=== PATIENT | male | born 1995 | race Caucasian/White ===

== ENCOUNTER 2025-04-26 21:28 | Emergency (ER) | payer OTHER, SELFPAY ==
[2025-04-26 21:29] VITALS: BP 159/95
--- NOTE | 2025-04-26 22:02 | ED.SKININJ ---
HPI-Injury
General
Chief Complaint: Bite
Time Seen by Provider: 04/26/25 21:47
History of Present Illness-Injury
Initial Injury comments:
29-year-old otherwise healthy male presents to the emergency department for evaluation of a minor laceration to the right cheek that occurred after being bitten by family ember's dog. Dog is reportedly up-to-date on rabies vaccinations. Patient
reports his last tetanus was less than 5 years ago.
Review of Systems
Review of Systems
Allergies reviewed?: Yes
All Other Systems: ROS reviewed and negative except as documented in HPI and ROS
Phy Exam
Physical Exam
Physical Exam:
GEN: Well appearing, NAD, WDWN
HEENT: Oral mucosa moist, no scleral icterus, subcentimeter superficial laceration to the right mandible with no active bleeding
Cardiac: Regular rate
Lung: No respiratory distress, no tachypnea
MSK: No gross deformity or injuries
Skin: Good color, no pallor or jaundice, no rashes
Neuro: AO x3, moves all extremities freely
Psych: Calm, cooperative
Course
Vital Signs
Initial and Last Documented VS:
Initial Vital Signs
Temp Pulse Resp BP Pulse Ox
98 F 84 16 159/95 100
04/26/25 21:29 04/26/25 21:29 04/26/25 21:29 04/26/25 21:29 04/26/25 21:29
Last Documented Vital Signs
Temp Pulse Resp BP Pulse Ox
98 F 84 16 159/95 100
04/26/25 21:29 04/26/25 21:29 04/26/25 21:29 04/26/25 21:29 04/26/25 22:04
MDM/Problems Addressed
MDM/Problems Addressed:
Very minor improvement, irrigated with patient declines, no indication for prophylactic antibiotic
Abx prescribed to the patient as he is currently traveling should he develop any signs or symptoms of infection however advised to avoid use
*Pulse Oximetry
SaO2: 100
Oxygen Mode of Delivery: Room air
Patient hypoxic: no
*Critical Care Note
Total Time (30-74mins, 75-104mins- exclusive of procedures): Not Applicable
ED Attending Note
-
Portions of this chart may have been created with voice recognition software.� Occasional wrong word or��sound alike� substitutions may have occurred due to the inherent limitations of voice recognition software.
Discharge Plan
Departure
Patient Disposition: Home (Routine Discharge)
Date of Disposition: 04/26/25
Time of Disposition: 22:04
Patient with high blood pressure during this ER visit?: No
Discharge Problem:
Dog bite of face
Instructions: Wound Care (DC)
Prescriptions:
New
amoxicillin-pot clavulanate 875-125 mg tablet
1 tab PO BID Qty: 10 0RF
Interventions
Interventions:
*General Assessment Last Done: 04/26/25 21:29
*Neglect/Abuse Screening Last Done: 04/26/25 21:29
*Risk Screen - Suicide (C-SSRS) Last Done: 04/26/25 21:29
*Nursing Disposition Last Done: 04/26/25 22:23
Discharge Date and Time
Discharge Date/Time: 04/26/25 22:24
Print Language: AZERI
== END 2025-04-26 22:24 | disposition home or self-care (01) ==
LOC: EMR 21:28
PROVIDERS: EMERGENCY PHYSICIAN Student in an Organized Health Care Education/Training Program
DX: S01.411A Laceration without foreign body of right cheek and temporomandibular area, initial encounter (principal); W54.0XXA Bitten by dog, initial encounter
CPT/HCPCS: 99283